=== PATIENT | female | born 1995 | race African-American/Black ===

== ENCOUNTER 2023-11-01 22:09 | Inpatient (IN) | payer MEDICAID ==
[~2023-11-01] VITALS: Ht 160 cm; Wt 49.9 kg
[2023-11-01 22:22] VITALS: O2SAT 97
[2023-11-01] MEDS: ONDANSETRON HCL 4MG/2ML INJ IV STA (23:12)
[2023-11-01] MEDS: SODIUM CHLORIDE 0.9% 1,000 ML IV ONE (23:14)
[2023-11-01] MEDS: MAGNESIUM/ALUMINUM HYDROXIDE/SIMETHICONE 30ML UDC PO STA (23:52)
[2023-11-02] MEDS: LORAZEPAM 0.5MG TABLET PO ONE (00:18)
[2023-11-02] MEDS: ONDANSETRON 4MG ODT PO ONE ×2 (00:18→04:02)
[2023-11-02 00:30] LABS: HEMATOCRIT. 44.5 % (36.0-48.0); MEAN CORPUSCULAR HEMOGLOBIN 31.8 pg (28.0-32.0); MEAN CORPUSCULAR HGB CONC 31.6 g/dL (31.0-37.0); MEAN CORPUSCULAR VOLUME 100.6 fL (81.0-99.0); MEAN PLATELET VOLUME 8.3 fl (7.4-10.4); PLATELET 284 x1000/uL (130-400); RED BLOOD CELL COUNT 4.42 mill/uL (4.2-5.4); RED CELL DISTRIBUTION WIDTH 20.9 % (11.6-14.6); WHITE BLOOD COUNT 17.4 x1000/uL (4.5-11.0)
[2023-11-02 00:34] LABS: DIFFERENTIAL COMMENT 1
[2023-11-02 00:43] LABS: CHLORIDE 100 mEq/L (98-107); POTASSIUM 4.3 mEq/L (3.5-5.1); SODIUM 139 mEq/L (136-145)
[2023-11-02 00:46] LABS: CALCIUM 10.3 mg/dL (8.7-10.4)
[2023-11-02 00:50] LABS: CREATININE 0.9 mg/dL (0.6-1.0)
[2023-11-02 00:51] LABS: ETHANOL BLOOD 37 mg/dL (<10); GLUCOSE 88 mg/dL (70-105); UREA NITROGEN BLOOD 6 mg/dL (9-23)
[2023-11-02 00:52] LABS: ALANINE AMINOTRANSFERASE 64 IU/L (10-49); ALBUMIN 5.5 g/dL (3.2-4.8); ASPARTATE AMINOTRANSFERASE 171 IU/L (<34)
[2023-11-02 00:53] LABS: BILIRUBIN DIRECT 0.2 mg/dL (<=3.0); BILIRUBIN TOTAL 0.6 mg/dL (0.1-1.0); PROTEIN TOTAL 9.8 g/dL (6.0-8.3)
[2023-11-02 00:58] LABS: HCG SCREEN NEGATIVE
[2023-11-02 01:18] LABS: CARBON DIOXIDE < 10 mEq/L (21-32)
[2023-11-02] MEDS: HYDROXYZINE 25MG TABLET PO ONE (02:01)
[2023-11-02 03:38] LABS: CHLORIDE 98 mEq/L (98-107); POTASSIUM 4.5 mEq/L (3.5-5.1); SODIUM 136 mEq/L (136-145)
[2023-11-02 03:39] LABS: CARBON DIOXIDE 13 mEq/L (21-32)
[2023-11-02 03:44] LABS: CREATININE 1.1 mg/dL (0.6-1.0); GLUCOSE 108 mg/dL (70-105); UREA NITROGEN BLOOD 9 mg/dL (9-23)
[2023-11-02 03:45] LABS: INR 0.9; PROTHROMBIN TIME 10.5 sec (9.6-11.0)
[2023-11-02] MEDS: METOCLOPRAMIDE HCL 10MG TABLET PO ONE (04:20)
[2023-11-02] MEDS: SODIUM CHLORIDE 0.9% 1,000 ML IV ONE (06:29)
[2023-11-02] MEDS ORDERED: DOCUSATE SODIUM 100MG CAPSULE PO PRN (07:45)
[2023-11-02] MEDS ORDERED: IPRATROPIUM/ALBUTEROL 0.5-3(2.5)MG/3ML NEB HHN PRN (07:45)
[2023-11-02] MEDS ORDERED: MAGNESIUM/ALUMINUM HYDROXIDE/SIMETHICONE 30ML UDC PO PRN (07:45)
[2023-11-02] MEDS ORDERED: CLONIDINE 0.1MG TABLET PO PRN (07:45)
[2023-11-02] MEDS ORDERED: ONDANSETRON HCL 4MG/2ML INJ IV PRN (07:45)
[2023-11-02] MEDS ORDERED: ACETAMINOPHEN 325MG TABLET PO PRN ×2 (07:45)
[2023-11-02] MEDS ORDERED: GUAIFENESIN 200MG/10ML SUGAR FREE UDC PO PRN (07:45)
[2023-11-02 08:00] VITALS: BP 139/86; PULSE 107; RESP 18; TEMP 98.5
[2023-11-02] MEDS ORDERED: LORAZEPAM 2MG/ML INJ IV PRN (08:00)
[2023-11-02 08:36] LABS: IRON 131 ug/dL (50-170)
[2023-11-02 08:37] LABS: LDL CHOLESTEROL 103 mg/dL (5-100); TRIGLYCERIDE 211 mg/dL (0-150)
[2023-11-02 08:38] LABS: CHOLESTEROL 245 mg/dL (<200); HDL CHOLESTEROL 88 mg/dL (>65)
[2023-11-02 08:39] LABS: PHOSPHORUS 5.9 mg/dL (2.5-4.9); TOTAL IRON BINDING CAPACITY 290 ug/dl (250-425)
[2023-11-02 08:42] LABS: FERRITIN 150 ng/mL (10-291); VITAMIN B12 SERUM 1029 pg/mL (211-911)
[2023-11-02 08:56] LABS: FOLIC ACID (FOLATE) SERUM > 20.00 ng/mL (>5.38)
[2023-11-02] MEDS: PANTOPRAZOLE 40MG DR TABLET PO SCH (09:05)
[2023-11-02] MEDS: DEXT 5%/LACTATED RINGERS 1,000 ML IV SCH (09:05)
[2023-11-02] MEDS: FOLIC ACID 1 MG, THIAMINE HCL 100 MG, MVI, ADULT NO.1 10 ML in DEXTROSE 5% WATER 1,000 ML IV ONE (10:47)
[2023-11-02 10:56] LABS: PLATELET ESTIMATE NORMAL
[2023-11-02 10:57] VITALS: BP 139/84; PULSE 107; RESP 18; TEMP 98.5
[2023-11-02 12:00] VITALS: BP 130/70; PULSE 100; RESP 18; TEMP 97.6
[2023-11-02] MEDS: LACTATED RINGERS 1,000 ML IV SCH (12:00)
[2023-11-02] MEDS: MAGNESIUM 2 G PREMIX 50 ML IV NR (13:02)
[2023-11-02 13:30] LABS: CARBON DIOXIDE 23 mEq/L (21-32); CHLORIDE 100 mEq/L (98-107); POTASSIUM 4.2 mEq/L (3.5-5.1); SODIUM 133 mEq/L (136-145)
[2023-11-02 13:31] LABS: CALCIUM 9.8 mg/dL (8.7-10.4)
[2023-11-02 13:35] LABS: CREATININE 1.1 mg/dL (0.6-1.0); GLUCOSE 161 mg/dL (70-105)
[2023-11-02 13:36] LABS: UREA NITROGEN BLOOD 15 mg/dL (9-23)
[2023-11-02 15:09] LABS: CREATINE KINASE 68 IU/L (34-145)
[2023-11-02 17:50] LABS: CLARITY URINE CLOUDY (CLEAR); COLOR URINE DARK YELLOW (YELLOW); GLUCOSE URINE NEGATIVE (NEGATIVE); KETONES URINE 2+ (NEGATIVE); LEUKOCYTE ESTERASE URINE 1+ (NEGATIVE); NITRITE URINE NEGATIVE (NEGATIVE); OCCULT BLOOD URINE 3+ (NEGATIVE); PROTEIN URINE 2+ (NEGATIVE); SPECIFIC GRAVITY URINE 1.025 (1.005-1.030)
[2023-11-02 18:04] LABS: *AMPHETAMINES SCREEN URINE NEGATIVE (NEGATIVE); *BARBITURATES SCREEN URINE NEGATIVE (NEGATIVE); *BENZODIAZEPINES SCREEN URINE NEGATIVE (NEGATIVE); *COCAINE SCREEN URINE NEGATIVE (NEGATIVE)
[2023-11-02 18:05] LABS: CANNABINOID URINE SCREEN PRESUMPTIVE POSITIVE (NEGATIVE); ECSTASY MDMA SCREEN URINE NEGATIVE (NEGATIVE); METHADONE URINE SCREEN NEGATIVE (NEGATIVE); OPIATES URINE SCREEN NEGATIVE (NEGATIVE); PHENCYCLIDINE URINE SCREEN NEGATIVE (NEGATIVE)
[2023-11-02 18:20] LABS: BACTERIA URINE 2+; SQUAMOUS EPITHELIAL CELL URINE 2+ /lpf (RARE/1+)
[2023-11-02 20:00] VITALS: BP 119/87; PULSE 100; RESP 18; TEMP 97.5
[2023-11-02 23:37] LABS: CREATINE KINASE 66 IU/L (34-145)
[2023-11-03 06:58] LABS: T4 FREE 1.2 ng/dL (0.89-1.76)
[2023-11-03 06:59] LABS: THYROID STIMULATING HORMONE 2.03 uIU/mL (0.55-4.78)
[2023-11-03 08:15] LABS: CARBON DIOXIDE 19 mEq/L (21-32); CHLORIDE 102 mEq/L (98-107); POTASSIUM 3.8 mEq/L (3.5-5.1); SODIUM 135 mEq/L (136-145)
[2023-11-03 08:16] LABS: CALCIUM 9.8 mg/dL (8.7-10.4)
[2023-11-03 08:20] LABS: GLUCOSE 72 mg/dL (70-105)
[2023-11-03 08:21] LABS: UREA NITROGEN BLOOD 15 mg/dL (9-23)
[2023-11-03 08:22] LABS: ALANINE AMINOTRANSFERASE 38 IU/L (10-49); ALBUMIN 4.3 g/dL (3.2-4.8); ASPARTATE AMINOTRANSFERASE 62 IU/L (<34)
[2023-11-03 08:23] LABS: BILIRUBIN TOTAL 1.1 mg/dL (0.1-1.0); PHOSPHORUS 1.6 mg/dL (2.5-4.9); PROTEIN TOTAL 7.6 g/dL (6.0-8.3)
[2023-11-03 08:48] LABS: BASOPHILS % 0.2 % (0.0-2.0); EOSINOPHILS % 0.2 % (0.0-5.0); HEMATOCRIT. 35.5 % (36.0-48.0); HEMOGLOBIN. 11.7 g/dL (12.0-16.0); MEAN CORPUSCULAR HEMOGLOBIN 31.2 pg (28.0-32.0); MEAN CORPUSCULAR HGB CONC 33.1 g/dL (31.0-37.0); MEAN PLATELET VOLUME 8.1 fl (7.4-10.4); MONOCYTES % 12.9 % (2.0-8.0); NEUTROPHILS % 69.7 % (40.0-76.0); PLATELET 188 x1000/uL (130-400); RED BLOOD CELL COUNT 3.77 mill/uL (4.2-5.4); RED CELL DISTRIBUTION WIDTH 19.5 % (11.6-14.6); WHITE BLOOD COUNT 7.3 x1000/uL (4.5-11.0)
[2023-11-03 08:50] LABS: MEAN CORPUSCULAR VOLUME 94.2 fL (81.0-99.0)
[2023-11-03 12:00] VITALS: BP 127/70; PULSE 90; RESP 19; TEMP 97.3
[2023-11-03 16:00] VITALS: BP 122/76; PULSE 88; RESP 18; TEMP 97.1
[2023-11-04] MEDS ORDERED: FAMOTIDINE 20MG TABLET PO SCH (09:00)
[2023-11-05 04:08] LABS: CHLAMYDIA TRACHOMATIS NAA Negative (Negative); NEISSERIA GONORRHOEAE NAA Negative (Negative)
== END 2023-11-03 18:00 | disposition home or self-care (01) | DRG 422 ==
LOC: ER 22:09 → 5WST 11-02 06:16 → 6WST 11-02 09:25
PROVIDERS: ADMIT Internal Medicine; ATTEND Internal Medicine
DX: E86.0 Dehydration (principal); N17.0 Acute kidney failure with tubular necrosis; E88.09 Other disorders of plasma-protein metabolism, not elsewhere classified; E87.20 Acidosis, unspecified; K92.0 Hematemesis; E83.39 Other disorders of phosphorus metabolism; K76.0 Fatty (change of) liver, not elsewhere classified; E83.42 Hypomagnesemia; D75.89 Other specified diseases of blood and blood-forming organs; R74.01 Elevation of levels of liver transaminase levels; D72.829 Elevated white blood cell count, unspecified; E78.5 Hyperlipidemia, unspecified; F10.239 Alcohol dependence with withdrawal, unspecified; Y90.1 Blood alcohol level of 20-39 mg/100 ml; F12.90 Cannabis use, unspecified, uncomplicated; Z79.899 Other long term (current) drug therapy
CPT/HCPCS: 36415; 74018; 74176; 80048; 80053; 80061; 80076; 80305; 80320; 81003; 82550; 82607; 82728; 82746; 83036; 83540; 83550; 83605; 83735; 84100; 84439; 84443; 84703; 85025; 86592; 87491; 87591; 93970; 99285; J2405; J3411; J3475; J3490; J7030; J7070; J7120; J7121; J8597; Q0162; G0480